=== PATIENT | male | born 1985 | race Caucasian/White ===

== ENCOUNTER 2022-09-23 12:46 | Emergency (ER) | payer OTHER, SELFPAY ==
[2022-09-23 13:16] VITALS: BP 122/86; PULSE 92; RESP 18; TEMP 37.1; O2SAT 96
[2022-09-23 14:50] VITALS: BP 123/83; PULSE 88; RESP 16; TEMP 37.1; O2SAT 98
--- NOTE | 2022-09-23 14:57 | ED.GENADUL_ITS ---
Discharge Plan Discharge Details Chief Complaint: Cellulitis Primary Care Provider: Jeanne,Local ED Provider: Leonard Hogan Home Meds and New Rx's Prescriptions: No Action omeprazole 20 mg Tablet,Delayed Release (Dr/Ec) 20 mg PO DAILY Medical Decision Making 37-year-old gentleman presents from local corrections facility simply not feeling well for the past couple of days, subjective fever, body aches, etc. Given this plan is to obtain flu, COVID, RSV as well as IV access with routine screening laboratory values. This morning he developed a rash to the left anterior lower extremity. Calf is unremarkable. Negative Homans' sign. Lungs are clear to auscultation, pulse in the 80s, O2 sat 98% on room air. The rash itself appears to be a combination between mild erythema versus ecchymosis although the patient denies any obvious trauma. Extremely low suspicion for PE given his overall presentation. Given concern for cellulitis, patient resides at a corrections facility, I do believe initiating p.o. Bactrim upon discharge is reasonable. Awaiting IV access, CBC, CMP, and swab. This documentation was generated using [employer] dictation system, please disregard any oddities of phrase or misspellings. Sign Out Yes HPI General Mode of arrival: ambulatory . Date/Time Provider Initiated Documentation: 09/23/22 14:39 . Limitations to Documentation: no limitations . Information obtained by: patient . HPI Narrative: This is a 37-year-old gentleman who is currently incarcerated, presents in police custody, for evaluation of not feeling well for a couple of days, nausea, body aches, subjective fever, now with a rash to his left lower extremity that began this morning. Reports mild dull global headache. Denies recent illness or trauma, neck pain, chest pain, shortness of breath, abdominal pain, vomiting. Does admit to diarrhea over the past 24-48 hours. Denies rash elsewhere on his body. Denies any calf pain. Did have [id number] medication at the custodial today it was minimal relief. Related Data Home Medications Medication Instructions Recorded Confirmed omeprazole 20 mg tablet,delayed 20 mg PO DAILY 09/23/22 09/23/22 release Allergies Allergy/AdvReac Type Severity Reaction Status Date / Time No Known Allergies Allergy Unverified 09/23/22 13:18 General Stated Complaint: Cellulitis LETICIA: 3 Review of Systems Constitutional Constitutional: Reports fever(s), Reports headache(s) and Denies weakness ENT Ears, Nose, Mouth, and Throat: Reports headache(s) and Denies neck pain Cardiovascular Cardiovascular: Denies chest pain and Denies dyspnea Respiratory Respiratory: Denies cough and Denies dyspnea Gastrointestinal Gastrointestinal: Denies abdominal pain, Reports nausea and Denies vomiting Genitourinary Genitourinary: Denies dysuria Musculoskeletal Musculoskeletal: Reports myalgias and Denies neck pain Integumentary/Breasts Skin/Breast: Reports rash Neurologic Neurologic: Reports headache(s) and Denies weakness [facility] [place] Social History Smoking/Tobacco Use Status: Former Tobacco Use Smoking risk assessment performed?: Yes Alcohol Intake: former Drug use: Never Substance use type: does not use Exam Const General: cooperative, healthy appearing and no acute distress Orientation: alert and awake HENMT Head: normal to inspection, normocephalic and atraumatic Face and sinus: normal facial exam Mouth: moist mucous membranes Eyes General: appearance normal, both eyes and all related structures Conjunctivae: conjunctivae normal Neck Neck: normal visual inspection, full ROM, no meningeal signs, trachea midline and supple Resp Effort & Inspection: normal respiratory effort and able to speak in complete sentences Auscultation: clear to auscultation bilaterally Cardio Rate: regular rate Rhythm: regular rhythm GI Palpation: soft and nontender Back/Spine/Pelvis Back: no CVA tenderness and No back tenderness Neuro General: patient alert, patient awake, moves all extremities and no focal motor deficits Cognition: normal cognition Speech: speech normal Gait: normal gait Motor: muscle tone normal throughout Sensory Exam: no sensory deficits noted Extrem General: full ROM, capillary refill normal, no pedal edema and no calf tenderness Upper/lower leg/hip images: 1. None circumferential macular erythema-ecchymosis. Skin is intact. Minimal warmth and tenderness. No drainage, induration, fluctuance. Normal pedal pulse and capillary refill. Other: Negative Eva bilaterally. Psych Appearance: grossly normal Mental Status: mental status grossly normal Course Vital Signs Vital signs: Vital Signs Temperature 37.1 C 09/23/22 13:16 Pulse 92 H 09/23/22 13:16 Respiratory Rate 18 09/23/22 13:16 Blood Pressure 122/86 09/23/22 13:16 Pulse Oximetry 96 09/23/22 13:16 Temperature 37.1 C 09/23/22 14:50 Temperature Source Temporal Artery Scan 09/23/22 14:50 Pulse 88 09/23/22 14:50 Respiratory Rate 16 09/23/22 14:50 Respiratory Effort Non-Labored 09/23/22 13:19 Blood Pressure 123/83 09/23/22 14:50 Blood Pressure Position Sitting 09/23/22 13:16 Pulse Oximetry 98 09/23/22 14:50 Oxygen Delivery Method Room Air 09/23/22 14:50 Oxygen Flow Rate 0 09/23/22 14:50 Pain Level 4 09/23/22 14:50
[2022-09-23] MEDS: Normal Saline 1,000 ML 1000 ML IV (15:59)
[2022-09-23] MEDS: Ketorolac 30 MG/ML VIAL IVP (15:59)
[2022-09-23 16:07] LABS: Abs Immature Grans 0.05 10^3/uL (0.0-0.06); Absolute Basophil Count 0.03 10^3/uL (0.0-0.2); Absolute Lymphocyte Count 1.39 10^3/uL (1.2-3.4); Absolute Neutrophil Count 8.83 10^3/uL (1.2-6.7); Basophils % 0.3; HCT 48.6 % (40.0-50.0); HGB 16.2 g/dL (13.5-17.5); Immature Grans % 0.5; Lymphocytes % 12.6; MCH 28.8 pg (27.0-33.0); MCHC 33.3 % (32.0-36.0); MCV 86 fL (80-95); MPV 8.9 fL (8.0-11.0); Monocytes % 6.4; Neutrophils % 80.2; Platelet Count 223 10^3/uL (130-400); RBC 5.63 10^6/uL (4.36-5.78); RDW 12.7 % (11.8-14.1); WBC 11.01 10^3/uL (4.4-10.8)
--- NOTE | 2022-09-23 16:18 | W.EDPROG ---
Date of service: 09/23/22 Time of Service: 16:18 Medical Decision Making Care assumed from provider (HARRIS Gomes) Please see their initial HPI, PE, and documentation. Discussed patient details and case and pending workup and disposition. Patient is hemodynamically stable, and alert and oriented. At the time of signout awaiting labs and eval for cellulitis. Awaiting COVID and flu swab. CBC shows a slightly elevated white blood cell count 11.01, absolute neutrophils 8.83. Discussed results with patient she verbalized understanding. Patient was given Bactrim first dose given here in the department with 2 tablets to go and a prescription for 10 days. Discussed strict return instructions and follow-up care. Patient has remained hemodynamically stable alert and oriented throughout the remainder of the stay. This text was generated using [employer] dictation system, please disregard any oddities of phrase or misspellings. Lab Data Lab results reviewed: Yes I reviewed the patient's lab results. Labs: Laboratory Tests Range/Units 09/23/22 09/23/22 09/23/22 15:30 15:55 15:55 WBC (4.4-10.8) 10^3/uL 11.01 H RBC (4.36-5.78) 10^6/uL 5.63 Hgb (13.5-17.5) g/dL 16.2 Hct (40.0-50.0) % 48.6 MCV (80-95) fL 86 MCH (27.0-33.0) pg 28.8 MCHC (32.0-36.0) % 33.3 RDW (11.8-14.1) % 12.7 Plt Count (130-400) 10^3/uL 223 MPV (8.0-11.0) fL 8.9 Immature Gran % 0.5 Neutrophils % 80.2 Lymphocytes % 12.6 Monocytes % 6.4 Eosinophils % 0.0 Basophils % 0.3 Nucleated RBC % (0.0-0.3) % 0.0 Absolute Neutrophils (1.2-6.7) 10^3/uL 8.83 H Absolute Lymphocytes (1.2-3.4) 10^3/uL 1.39 Absolute Monocytes (0.1-0.8) 10^3/uL 0.70 Absolute Eosinophils (0.0-0.7) 10^3/uL 0.00 Absolute Basophils (0.0-0.2) 10^3/uL 0.03 Sodium (136-145) mmol/L 134 L Potassium (3.5-5.1) mmol/L 3.8 Chloride (98-107) mmol/L 98 Carbon Dioxide (21.0-32.0) mmol/L 30.1 Anion Gap (3-11) mmol/L 5.9 BUN (7-18) mg/dL 18 Creatinine (0.70-1.30) mg/dL 1.2 Est GFR (CKD-EPI 2020) (mL/min/1.73m2) 79.38 Glucose (74-106) mg/dL 103 Calcium (8.5-10.1) mg/dL 9.2 Total Bilirubin (0.2-1.0) mg/dL 0.7 AST (15-37) U/L 56 H ALT (16-63) U/L 95 H Alkaline Phosphatase (46-116) U/L 111 Total Protein (6.4-8.2) g/dL 8.0 Albumin (3.4-5.0) g/dL 3.8 Lipase (73-393) U/L 24 COVID-19 Source Nasopharynx SARS-CoV-2 (PCR) (Negative) Negative Influenza Type A (PCR) (Negative) Negative Influenza Type B (PCR) (Negative) Negative RSV (PCR) (Negative) Negative Sign Out Yes Sign Out Sign Out Data: Sign Out Comment: Examination consistent with left lower leg cellulitis, given he is at a corrections facility I believe initiating p.o. Bactrim is reasonable. Given his complaints of symptoms over the past couple of days, body aches, generally not feeling well, subjective fever, I do believe obtaining routine screening laboratory values including COVID, flu, RSV is reasonable. He would be within the window to initiate Tamiflu, Paxlovid, etc. Last updated by Leonard Hogan PA at 09/23/22 15:56 Discharge Plan Disposition Patient Disposition: [facility] Condition: Stable Discharge Details Clinical Impression: Cellulitis of left leg Primary Care Provider: Jeanne,Local ED Provider: Ya Mirza Home Meds and New Rx's Prescriptions: New sulfamethoxazole-trimethoprim [Bactrim DS] 800-160 mg tablet 1 tab PO BID 10 Days Qty: 20 0RF No Action omeprazole 20 mg Tablet,Delayed Release (Dr/Ec) 20 mg PO DAILY Discharge Instructions Instructions: Cellulitis (ED) Additional Instructions: Please take the antibiotic twice a day with yogurt or probiotic as directed. Please take the full 10 days. If after 3 to 5 days get any worse please return to the ER or be evaluated again by your primary care provider. Your labs are largely unremarkable. Follow up with primary care provider in 3-5 days. Return to ED sooner if any worsening or concerns. Increase oral fluids. Please take Tylenol or Ibuprofen with food every 4-6 hours as needed for pain and swelling. Discharge Data Discharge Date/Time-TO BE ENTERED AT DEPARTURE: 09/23/22 16:50
[2022-09-23 16:21] LABS: COVID-19 PCR Negative (Negative); Influenza A PCR Negative (Negative); Influenza B PCR Negative (Negative); RSV PCR Negative (Negative)
[2022-09-23 16:22] LABS: Source Nasopharynx
[2022-09-23 16:27] LABS: ALT 95 U/L (16-63); AST 56 U/L (15-37); Albumin 3.8 g/dL (3.4-5.0); Alkaline Phosphatase 111 U/L (46-116); Anion Gap 5.9 mmol/L (3-11); BUN 18 mg/dL (7-18); Bilirubin, Total 0.7 mg/dL (0.2-1.0); CO2 30.1 mmol/L (21.0-32.0); CREATININE 1.2 mg/dL (0.70-1.30); Calcium 9.2 mg/dL (8.5-10.1); Chloride 98 mmol/L (98-107); Estimated GFR 79.38 (mL/min/1.73m2); Glucose 103 mg/dL (74-106); Lipase 24 U/L (73-393); Potassium 3.8 mmol/L (3.5-5.1); Sodium 134 mmol/L (136-145)
[2022-09-23] MEDS: Sulfameth/Trimeth DS TAB 1 TAB PO (16:44)
[2022-09-23] MEDS: Sulfameth/Trimeth DS, 2 TABS/BTL 1 TAB PO (16:44)
[2022-09-23] MEDS: Acetaminophen 325 MG TAB 650 MG PO (16:53)
== END 2022-09-23 16:50 ==
PROVIDERS: Physician Assistant; Emergency Provider Registered Nurse Emergency
DX: L03.116 Cellulitis of left lower limb (principal); D72.829 Elevated white blood cell count, unspecified; Z87.891 Personal history of nicotine dependence; Z20.822 Contact with and (suspected) exposure to COVID-19
CPT/HCPCS: 36415; 80053; 83690; 87637; 96361; 96374; 99284; 85025; J1885